=== PATIENT | female | born 1960 | race Caucasian/White ===

== ENCOUNTER 2017-04-21 08:52 | Observation (INO) | payer OTHER ==
[~2017-04-21] VITALS: Ht 161.3 cm; Wt 71.5 kg
[~2017-04-21 08:52] MED LIST: BIOTCAP PO; ESTR1TAB12 PO; LAMI250T PO; MEDR2.5T19 PO
[2017-04-21 08:55] VITALS: BP 169/91; PULSE 73; RESP 13; TEMP 98.7; O2SAT 96
[2017-04-21] MEDS ORDERED: ESTR1TAB PO (09:13)
[2017-04-21] MEDS ORDERED: MELA5TAB15 PO (09:13)
[2017-04-21] MEDS ORDERED: UNIS50CA PO (09:13)
[2017-04-21] MEDS ORDERED: MEDR5TAB3 PO (09:13)
[2017-04-21] MEDS ORDERED: BIOTCAP PO (09:13)
[2017-04-21 09:14] VITALS: O2SAT 100
--- NOTE | 2017-04-21 09:14 | PD ---
HPI Chief Complaint: Chest Pain Time Seen by Provider: 09:03 Travel History International Travel<30 days: No Contact w/Intl Traveler<30days: No Traveled to known affect area: No History of Present Illness HPI 56-year-old female complains of chest pain. Patient states that she has intermittent chest pain for the past 6 months. Patient states the pain is substernal pressure with radiation to the neck. Patient states the pain usually lasted an hour or more and resolved completely. Patient states the pain is independent of exertion. Patient states that she had shortness of breath associated with the chest pain. Patient denies any coughing congestion fever chills. Patient denies any nausea vomiting diarrhea. Patient denies any history of CAD. Patient denies history hypertension, diabetes, hyperlipidemia. Patient is an ex-smoker. Patient has family history of heart disease. Patient denies any chest pain now. PFSH Past Medical History Tetanus Vaccination: < 5 Years ?: Not Menopausal: Yes Past Surgical History Section: Yes Other Surgery: Yes (ablation) Social History Alcohol Use: No Tobacco Use: No Substance Use: No Allergies-Medications (Allergen,Severity, Reaction): Coded Allergies: naproxen (Unverified Allergy, Severe, VOMITING/DISORIENTATION/DIARRHEA/ ITCHING, 04/21/17) Reported Meds & Prescriptions Reported Meds & Active Scripts Active Reported Unisom Sleepgels (Diphenhydramine (Sleep)) 50 Mg Cap 50 Mg PO HS PRN Medroxyprogesterone Acetate 5 Mg Tab 2.5 Mg PO DAILY Start day 21 Estradiol 1 Mg Tab 1 Mg PO DAILY Biotin 5 Mg Cap 5 Mg PO Melatonin 5 Mg Tab 3 Mg PO HS Review of Systems General / Constitutional: No: Fever Eyes: No: Visual changes HENT: No: Headaches Cardiovascular: Positive: Chest Pain or Discomfort Respiratory: No: Shortness of Breath Gastrointestinal: No: Abdominal Pain Genitourinary: No: Dysuria Musculoskeletal: No: Pain Skin: No Rash Neurologic: No: Weakness Psychiatric: No: Depression Endocrine: No: Polydipsia Hematologic/Lymphatic: No: Easy Bruising Physical Exam Narrative GENERAL: Well-nourished, well-developed patient. SKIN: Focused skin assessment warm/dry. HEAD: Normocephalic. EYES: No scleral icterus. No injection or drainage. NECK: Supple, trachea midline. No JVD or lymphadenopathy. CARDIOVASCULAR: Regular rate and rhythm without murmurs, gallops, or rubs. RESPIRATORY: Breath sounds equal bilaterally. No accessory muscle use. GASTROINTESTINAL: Abdomen soft, non-tender, nondistended. MUSCULOSKELETAL: No cyanosis, or edema. BACK: Nontender without obvious deformity. No CVA tenderness. Neurologic exam normal. Data Data Last Documented VS Vital Signs Date Time Temp Pulse Resp B/P (MAP) Pulse Ox O2 Delivery O2 Flow Rate FiO2 04/21/17 09:54 73 16 151/72 (98) 97 Room Air 04/21/17 08:55 98.7 Orders Orders Electrocardiogram (04/21/17 09:09) Complete Blood Count With Diff (04/21/17 09:09) Comprehensive Metabolic Panel (04/21/17 09:09) Creatine Kinase (Cpk) (04/21/17 09:09) Troponin I (04/21/17 09:09) Prothrombin Time / Inr (Pt) (04/21/17 09:09) Act Partial Throm Time (Ptt) (04/21/17 09:09) Chest, Single Ap (04/21/17 09:09) Iv Access Insert/Monitor (04/21/17 09:09) Ecg Monitoring (04/21/17 09:09) Oximetry (04/21/17 09:09) Labs Laboratory Tests Test 04/21/17 09:16 White Blood Count 8.5 TH/MM3 Red Blood Count 4.30 MIL/MM3 Hemoglobin 13.7 GM/DL Hematocrit 40.3 % Mean Corpuscular Volume 93.7 FL Mean Corpuscular Hemoglobin 32.0 PG Mean Corpuscular Hemoglobin Concent 34.1 % Red Cell Distribution Width 12.7 % Platelet Count 322 TH/MM3 Mean Platelet Volume 9.2 FL Neutrophils (%) (Auto) 63.5 % Lymphocytes (%) (Auto) 24.3 % Monocytes (%) (Auto) 9.5 % Eosinophils (%) (Auto) 1.9 % Basophils (%) (Auto) 0.8 % Neutrophils # (Auto) 5.4 TH/MM3 Lymphocytes # (Auto) 2.1 TH/MM3 Monocytes # (Auto) 0.8 TH/MM3 Eosinophils # (Auto) 0.2 TH/MM3 Basophils # (Auto) 0.1 TH/MM3 CBC Comment DIFF FINAL Differential Comment Prothrombin Time 10.7 SEC Prothromb Time International Ratio 1.0 RATIO Activated Partial Thromboplast Time 24.1 SEC Blood Urea Nitrogen 15 MG/DL Creatinine 0.81 MG/DL Random Glucose 110 MG/DL Total Protein 7.8 GM/DL Albumin 3.8 GM/DL Calcium Level 9.3 MG/DL Alkaline Phosphatase 33 U/L Aspartate Amino Transf (AST/SGOT) 13 U/L Alanine Aminotransferase (ALT/SGPT) 21 U/L Total Bilirubin 0.3 MG/DL Sodium Level 137 MEQ/L Potassium Level 4.1 MEQ/L Chloride Level 103 MEQ/L Carbon Dioxide Level 23.7 MEQ/L Anion Gap 10 MEQ/L Estimat Glomerular Filtration Rate 73 ML/MIN Total Creatine Kinase 95 U/L Troponin I LESS THAN 0.02 NG/ML MDM Medical Decision Making Medical Screen Exam Complete: Yes Emergency Medical Condition: Yes Interpretation(s) 9:56 AM. Chest x-ray shows no acute pathology. CBC within normal limit. CMP within normal limit. Cardiac enzymes are normal. Differential Diagnosis Differential diagnosis including angina, ND, PE, pneumothorax. Narrative Course 56-year-old female with intermittent chest pain. Diagnosis Primary Impression: Chest pain Qualified Codes: R07.9 - Chest pain, unspecified Admitting Information Admitting Physician Requests: Barry Hickey MD Apr 21, 2017 09:14
[2017-04-21 09:15] VITALS: BP 174/74; PULSE 85; RESP 16; O2SAT 99
[2017-04-21 09:24] LABS: AUTOMATED NEUTROPHIL # 5.4 TH/MM3 (1.8-7.7); BASOPHIL # 0.1 TH/MM3 (0-0.2); BASOPHIL % 0.8 % (0.0-2.0); EOSINOPHIL # 0.2 TH/MM3 (0-0.4); EOSINOPHIL % 1.9 % (0.0-4.0); HEMATOCRIT 40.3 % (35.0-46.0); HEMO FLAGS DIFF FINAL; LYMPH % 24.3 % (9.0-44.0); LYMPHOCYTE # 2.1 TH/MM3 (1.0-4.8); MEAN CELL VOLUME 93.7 FL (80.0-100.0); MEAN CORPUSCULAR HGB CONC 34.1 % (32.0-36.0); MONO % 9.5 % (0.0-8.0); NEUT % 63.5 % (16.0-70.0); PLATELET COUNT 322 TH/MM3 (150-450); RED CELL DISTRIBUTION WIDTH 12.7 % (11.6-17.2); WHITE BLOOD COUNT 8.5 TH/MM3 (4.0-11.0)
[2017-04-21 09:41] LABS: ANION GAP 10 MEQ/L (5-15); APTT (PATIENT) 24.1 SEC (24.3-30.1); BICARBONATE 23.7 MEQ/L (21.0-32.0); BLOOD UREA NITROGEN 15 MG/DL (7-18); CHLORIDE 103 MEQ/L (98-107); GLOMERULAR FILTRATION RATE 73 ML/MIN (>89); POTASSIUM 4.1 MEQ/L (3.5-5.1); PROTHROMBIN TIME - PATIENT 10.7 SEC (9.8-11.6); SODIUM (NA) 137 MEQ/L (136-145)
[2017-04-21 09:42] LABS: ALT (GPT) 21 U/L (10-53)
--- NOTE | 2017-04-21 09:43 | RADRPT ---
EXAM DATE/TIME: 04/21/2017 09:34 [facility] COMPARISON: No previous studies available for comparison. INDICATIONS : Chest pain. MEDICAL HISTORY : None. SURGICAL HISTORY : None. ENCOUNTER: Initial ACUITY: 4 - 6 months PAIN SCORE: 5/10 LOCATION: Bilateral chest FINDINGS: A single view of the chest demonstrates the lungs to be symmetrically aerated without evidence of mas s, infiltrate or effusion. The cardiomediastinal contours are unremarkable. Osseous structures are intact. CONCLUSION: No acute disease. Isaias Beltrán MD on April 21, 2017 at 9:42 Board Certified Radiologist. This report was verified electronically.
[2017-04-21 09:46] LABS: ALKALINE PHOSPHATASE 33 U/L (45-117); AST (GOT) 13 U/L (15-37); TOTAL BILIRUBIN ADULT 0.3 MG/DL (0.2-1.0)
[2017-04-21 09:50] LABS: CREATINE KINASE 95 U/L (26-192)
[2017-04-21 09:54] VITALS: BP 151/72; PULSE 73; RESP 16; O2SAT 97
[2017-04-21] MEDS ORDERED: ACETAMINOPHEN 500 MG CPLT PO PRN ×2 (10:00→11:15)
[2017-04-21] MEDS ORDERED: SODIUM CHLORIDE 0.9% FLUSH 10 ML FLUSH IV FLUSH PRN (10:00)
[2017-04-21] MEDS ORDERED: ONDANSETRON HCL 4 MG/2 ML VIAL IV PUSH PRN (11:15)
[2017-04-21] MEDS ORDERED: NITROGLYCERIN 0.4 MG SL 25 TABS/BTL SL PRN (11:15)
[2017-04-21 11:23] VITALS: BP 137/63; PULSE 74; RESP 20; TEMP 98.5; O2SAT 98
--- NOTE | 2017-04-21 11:58 | HHI.HP ---
HPI Primary Care Physician No Primary Care Physician Chief Complaint Chest pain History of Present Illness 56-year-old female with no significant medical history presents to emergency room for further evaluation of chest tightness. Intermittent chest tightness 6 months. Location substernal. Characterized as tightness, aching, and soreness with occasional radiation to the center of her back and right shoulder. Duration 30-60 minutes, every 1-2 days. Discomfort comes on quickly and eases off gradually. Associated symptoms include diaphoresis. Denies associated symptoms of nausea, vomiting, or shortness of breath. No precipitating factors such as exertion or motion. No known relieving factors. Taking a deep breath does not make pain better or worse. Last 3 months occasionally will experience right shoulder and midback pain not umpteen with chest tightness. Occasionally moving neck makes pain worse. Denies any current chest pain. Yesterday experienced increase in frequency and awaken from sleep early a.m. with another episode. Notified daughter or symptoms who encouraged her to go to emergency room for further evaluation. Review of Systems General: No fatigue,weakness, fever, chills, recent illness, or change in appetite. Has been in her general state of health. 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 HEENT: No DURAND, no vision changes CV: As stated above. No current chest pain, pressure, or tightness. No intermittent leg pain. RESP: No SOB, cough, or sputum production. GI: Reports 2-3x/weekly lower abdominal pain, diarrhea, and diaphoresis after eating. No known triggers. Last colonoscopy 8 years ago unremarkable. No nausea, vomiting, constipation, melena, or blood in the stool. No change in appetite, no unintentional weight gain or weight loss. : No dysuria, urgency, frequency, history of frequent UTIs, or history of kidney stones EXT: No lower leg edema, no paraesthesias MS: No discomfort, change in ROM, injury, or trauma NEURO: No difficulty with balance, LOC, motor/sensory deficits PSYCH: No anxiety, depression, or situational stress. Reports her and her recently found her [id number] in their home from an apparent blot clot. 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 SKIN: No rashes, no concerning lesions Past Family Social History Allergies: Coded Allergies: naproxen (Unverified Allergy, Severe, VOMITING/DISORIENTATION/DIARRHEA/ ITCHING, 04/21/17) Past Medical History Insomnia Past Surgical History Tubal ligation, cone procedure for dysplasia Reported Medications Reported Meds & Active Scripts Active Reported Unisom Sleepgels (Diphenhydramine (Sleep)) 50 Mg Cap 50 Mg PO HS PRN Medroxyprogesterone Acetate 5 Mg Tab 2.5 Mg PO DAILY Start day 21 Estradiol 1 Mg Tab 1 Mg PO DAILY Biotin 5 Mg Cap 5 Mg PO Melatonin 5 Mg Tab 3 Mg PO HS Active Ordered Medications Current Medications Medications (Trade) Dose Ordered Sig/Gabi Route Start Time Stop Time Status Last Admin (NS Flush) 2 ml UNSCH PRN IV FLUSH 04/21/17 10:00 (NS Flush) 2 ml BID IV FLUSH 04/21/17 21:00 (Tylenol) 500 mg Q4H PRN PO 04/21/17 11:15 (Zofran Inj) 4 mg Q6H PRN IV PUSH 04/21/17 11:15 (Nitrostat Sl) 0.4 mg Q5M PRN SL 04/21/17 11:15 Family History Noncontributory for early onset cardiovascular disease. Diabetes prevalent in family history. Social History No known diabetes, hypertension, or hyperlipidemia. Quit smoking over 30 years ago. Daily alcohol use of wine and beer, amount not disclosed. Denies any illegal drug use. Endorses an active lifestyle. . 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 Past cardiac testing Years ago completed a routine exercise stress test found to be normal. Physical Exam Vital Signs Vital Signs Date Time Temp Pulse Resp B/P (MAP) Pulse Ox O2 Delivery O2 Flow Rate FiO2 04/21/17 11:23 98.5 74 20 137/63 (87) 98 04/21/17 11:02 04/21/17 09:54 73 16 151/72 (98) 97 Room Air 04/21/17 09:15 85 16 174/74 (107) 99 Room Air 04/21/17 09:14 100 Room Air 04/21/17 09:05 80 04/21/17 08:55 98.7 73 13 169/91 (117) 96 Physical Exam GENERAL: Alert WN, WD, NAD, pleasant, female HEAD: NC, AT EYES: Sclera clear, conjunctiva without injection, pupils equal and round ENT: Mucous membranes pink and moist NECK: Supple, no masses, trachea midline CV: RRR, without murmur, rub, gallop, no JVD, S1-S2 no S3-S4. No carotid bruits. RESP: Clear lungs throughout bilateral, no crackles, wheeze, rhonchi, symmetrical chest rise, nonlabored, able to speak in full sentences ABD: Soft, NT, ND, no masses, positive bowel tones BACK: No CVAT EXT: Pulses +24, no dependent edema MS: Normal tone 4 extremities, nontender, no obvious deformities, full range of motion NEURO: CN II through CN XII grossly intact, motor strength 5/5 PSYCH: A+O 3, pleasant affect, appropriate speech, appropriate mood and affect , insight and judgment SKIN: Normal turgor, normal texture, no lesions, no rashes, brisk cap refill, even hair distribution Laboratory Laboratory Tests Test 04/21/17 09:16 White Blood Count 8.5 Red Blood Count 4.30 Hemoglobin 13.7 Hematocrit 40.3 Mean Corpuscular Volume 93.7 Mean Corpuscular Hemoglobin 32.0 Mean Corpuscular Hemoglobin Concent 34.1 Red Cell Distribution Width 12.7 Platelet Count 322 Mean Platelet Volume 9.2 Neutrophils (%) (Auto) 63.5 Lymphocytes (%) (Auto) 24.3 Monocytes (%) (Auto) 9.5 Eosinophils (%) (Auto) 1.9 Basophils (%) (Auto) 0.8 Neutrophils # (Auto) 5.4 Lymphocytes # (Auto) 2.1 Monocytes # (Auto) 0.8 Eosinophils # (Auto) 0.2 Basophils # (Auto) 0.1 CBC Comment DIFF FINAL Differential Comment Prothrombin Time 10.7 Prothromb Time International Ratio 1.0 Activated Partial Thromboplast Time 24.1 Blood Urea Nitrogen 15 Creatinine 0.81 Random Glucose 110 Total Protein 7.8 Albumin 3.8 Calcium Level 9.3 Alkaline Phosphatase 33 Aspartate Amino Transf (AST/SGOT) 13 Alanine Aminotransferase (ALT/SGPT) 21 Total Bilirubin 0.3 Sodium Level 137 Potassium Level 4.1 Chloride Level 103 Carbon Dioxide Level 23.7 Anion Gap 10 Estimat Glomerular Filtration Rate 73 Total Creatine Kinase 95 Troponin I LESS THAN 0.02 Result Diagram: 04/21/1716 04/21/1716 Course EKG Sinus rhythm, normal axis, no ST or T-segment changes Caprini VTE Risk Assessment Caprini VTE Risk Assessment: No/Low Risk (score <= 1) Caprini Risk Assessment Model Point Value = 1 Point Value = 2 Point Value = 3 Point Value = 5 Age 41-60 Minor surgery BMI > 25 kg/m2 Swollen legs Varicose veins or History of unexplained or recurrent spontaneous Oral contraceptives or hormone replacement Sepsis (< 1 month) Serious lung disease, including pneumonia (< 1 month) Abnormal pulmonary function Acute myocardial infarction Congestive heart failure (< 1 month) History of inflammatory bowel disease Medical patient at bed rest Age 61-74 Arthroscopic surgery Major open surgery (> 45 min) Laparoscopic surgery (> 45 min) Malignancy Confined to bed (> 72 hours) Immobilizing plaster cast Central venous access Age >= 75 History of VTE Family history of VTE Factor V Leiden Prothrombin [id number] Lupus anticoagulant Anticardiolipin antibodies Elevated serum homocysteine Heparin-induced thrombocytopenia Other congenital or acquired thrombophilia Stroke (< 1 month) Elective arthroplasty Hip, pelvis, or leg fracture Acute spinal cord injury (< 1 month) Prophylaxis Regimen Total Risk Factor Score Risk Level Prophylaxis Regimen 0-1 Low Early ambulation 2 Moderate Order ONE of the following: *Sequential Compression Device (SCD) *Heparin 5000 units SQ BID 3-4 Higher Order ONE of the following medications: *Heparin 5000 units SQ TID *Enoxaparin/Lovenox 40 mg SQ daily (WT < 150 kg, CrCl > 30 mL/min) *Enoxaparin/Lovenox 30 mg SQ daily (WT < 150 kg, CrCl > 10-29 mL/min) *Enoxaparin/Lovenox 30 mg SQ BID (WT < 150 kg, CrCl > 30 mL/min) AND/OR *Sequential Compression Device (SCD) 5 or more Highest Order ONE of the following medications: *Heparin 5000 units SQ TID (Preferred with Epidurals) *Enoxaparin/Lovenox 40 mg SQ daily (WT < 150 kg, CrCl > 30 mL/min) *Enoxaparin/Lovenox 30 mg SQ daily (WT < 150 kg, CrCl > 10-29 mL/min) *Enoxaparin/Lovenox 30 mg SQ BID (WT < 150 kg, CrCl > 30 mL/min) AND *Sequential Compression Device (SCD) Assessment and Plan Assessment and Plan #1 Atypical chest pain-admitted chest pain center. Ruled out with 2 sets of EKGs, cardiac enzymes, and monitor on telemetry. Seen and evaluated by Dr. Dawson Izquierdo. Proceed with exercise stress testing. Reassurance provided chest discomfort lastly 6 months, every other day is highly unlikely to be cardiac related. If stress test unremarkable for ischemia, will discharge with follow-up with PCP. Patient agreeable to plan of care. Encouraged her to contact her GI physician for reported frequent lower abdominal pain, diarrhea, and diaphoresis 8 months. Angi Almonte Apr 21, 2017 11:58
[2017-04-21 12:57] LABS: CREATINE KINASE 73 U/L (26-192)
--- NOTE | 2017-04-21 13:43 | EKG ---
Date Performed: 04/21/2017 Time Performed: 09:17:11 PTAGE: 56 years EKG: Sinus rhythm NORMAL ECG PREVIOUS TRACING : 02/02/2010 07.18 Since previous tracing, no significant change noted DOCTOR: Dawson Izquierdo Interpretating Date/Time 04/21/2017 13:41:36
--- NOTE | 2017-04-21 14:08 | HHI.DCPOC ---
Discharge Care Plan Diagnosis: (1) Atypical chest pain Goals to Promote Your Health * To prevent worsening of your condition and complications * To maintain your health at the optimal level Directions to Meet Your Goals Take your medications as prescribed Follow your dietary instruction Follow activity as directed Keep your appointments as scheduled Take your immunizations and boosters as scheduled If your symptoms worsen call your PCP, if no PCP go to Urgent Care Center or Emergency Room Smoking is Dangerous to Your Health. Avoid second hand smoke Call the 24-hour hour crisis hotline for domestic abuse at Angi Almonte Apr 21, 2017 14:08
--- NOTE | 2017-04-21 14:48 | EKG ---
Date Performed: 04/21/2017 Time Performed: 12:10:47 PTAGE: 56 years EKG: Sinus rhythm NORMAL ECG PREVIOUS TRACING : 04/21/2017 09.17 Since previous tracing, no significant change noted DOCTOR: Dawson Izquierdo Interpretating Date/Time 04/21/2017 14:46:19
--- NOTE | 2017-04-21 14:48 | TR ---
Date Performed: 04/21/2017 Time Performed: 13:46:08 DOCTOR: Dawson Izquierdo DRUG LIST: CLINICAL HISTORY: REASON FOR TEST: Chest pain REASON FOR ENDING: OBSERVATION: CONCLUSION: Raghavendra protocol completed. Stopped sec to exceeding target heart rate and leg fatigue . Maximum MB=757 Target HR Achieved=93.0% Maximum KO=290/84 Total Exercise Time=7:01. No reprod chest pain. No ectopy. No st t segment changes to sugg ischemia. Good exercise tolerance. Normal bp respon se. Recovery quick and unremarkable. COMMENTS: Patient exercised using the Raghavendra protocol. No electrocardiographic changes were seen to suggest ischemia. Hemodynamic response to exercise was normal. No significant arrhythmia was prese nt.
[2017-04-21] MEDS ORDERED: SODIUM CHLORIDE 0.9% FLUSH 10 ML FLUSH IV FLUSH SCH (21:00)
== END 2017-04-21 15:13 | disposition home or self-care (01) ==
LOC: NEPD 08:52 → NEDA 10:04 → NEPHCDU 11:10
PROVIDERS: ADMIT Internal Medicine Cardiovascular Disease; ATTEND Internal Medicine Cardiovascular Disease
DX: R07.9 Chest pain, unspecified (principal); R06.02 Shortness of breath; Z87.891 Personal history of nicotine dependence; Z82.49 Family history of ischemic heart disease and other diseases of the circulatory system; R61 Generalized hyperhidrosis; R10.30 Lower abdominal pain, unspecified; R19.7 Diarrhea, unspecified; G47.00 Insomnia, unspecified
CPT/HCPCS: 71010; 80053; 82550; 84484; 85025; 85610; 85730; 93005; 93017; 99285; G0378